=== PATIENT | female | born 1995 | race Hispanic/Latino ===

== ENCOUNTER 2017-03-27 00:29 | Day surgery (SDC) | payer OTHER ==
[2017-03-27 01:08] VITALS: BP 118/60; TEMP 98.1; BMI 35.2
[2017-03-27] MEDS ORDERED: Acetaminophen 500 MG TAB PO PRN (01:40)
[2017-03-27 02:00] LABS: Bilirubin Negative (Negative); Blood, Urine Trace (Negative); Glucose, Urine (Dipstick) Negative (Negative); Ketone, Urine Negative (Negative); Nitrite Negative (Negative); Protein, Urine (Dipstick) Negative (Neg-Trace); Urobilinogen 0.2 mg/dL (0.2-1.0)
[2017-03-27 02:03] LABS: Bacteria/HPF None Seen HPF (None Seen); Hyaline Casts/LPF 4-6 HYALINE CAST LPF (0-3 Hyaline); Squamous Epithelial 0-3 HPF (0-3); WBC/HPF 0-3 HPF (0-3)
== END 2017-03-27 04:00 | disposition home or self-care (01) ==
LOC: L&D/OP 00:29
PROVIDERS: ATTEND Family Medicine
DX: O26.893 Other specified pregnancy related conditions, third trimester (principal); R30.0 Dysuria; R10.2 Pelvic and perineal pain; O99.013 Anemia complicating pregnancy, third trimester; D50.9 Iron deficiency anemia, unspecified; Z79.899 Other long term (current) drug therapy; Z3A.39 39 weeks gestation of pregnancy
CPT/HCPCS: 81003; 81015; 87480; 87510; 87660

== ENCOUNTER 2017-04-03 05:30 | Inpatient (IN) | payer OTHER ==
[2017-04-03] MEDS ORDERED: LR / Pitocin 40 units/1000 ml 1,000 ML IV PRN (06:05)
[2017-04-03] MEDS ORDERED: Lidocaine 1% (PF) 30 ML VIAL SC PRN (06:05)
[2017-04-03] MEDS ORDERED: Ondansetron HCl/PF 4 MG/2 ML Vial IVP PRN (06:05)
[2017-04-03] MEDS ORDERED: Promethazine HCl 25 MG/ML VIAL IM PRN (06:05)
[2017-04-03] MEDS ORDERED: Penicillin G Potassium 5 MILL.UNITS in Sodium Chloride 0.9% 100 ML IVPB SCH ×2 (06:30→09:15)
[2017-04-03] MEDS: Lactated Ringer's 1,000 ML IV SCH ×3 (06:45→17:35)
[2017-04-03 06:48] LABS: Hematocrit 35.1 % (36.0-47.0); Mean Platelet Volume 9.6 fL (7.4-10.4); Red Blood Cell (RBC) Count 4.08 mill/uL (4.00-5.20); White Blood Cell (WBC) Count 11.2 thou/uL (4.8-10.8)
[2017-04-03 07:02] VITALS: BMI 35.6
[2017-04-03] MEDS: LR 500 ML/Oxytocin 10 units 500 ML IV SCH (07:40)
[2017-04-03] MEDS: Penicillin G 2.5 MILL.units 2.5 MILL.UNITS in Premix Bag 1 BAG IVPB SCH ×4 (10:02→21:44)
--- NOTE | 2017-04-03 10:48 | PDOC.LDPN ---
Labor & Delivery Progress Note - Subjective Subjective: painful contractions - Objective Vital signs reviewed and normal: yes General: resting Uterine fundus: non tender Dilation: 5 Effacement: 75% Station: -3 FHT: category 1 (140/mod/+accel/no decel) [place] contractions every: 2-4 min - Assessment (1) Single in third trimester Code(s): Z34.93 - ENCNTR FOR SUPRVSN OF NORMAL PREG, UNSP, THIRD TRIMESTER Current Visit: Yes Status: Acute Plan: continue plan of care, pitocin for augmentation -: 21 yo at 40.6w by LMP/12.2w bedside sono here for IOL: 1. sIUP: Continue pitocin induction, making cervical change. 3T labs WNL. Anatomy sono WNL. 2. GBS positive: NKDA, s/p penicillin x1, continue q4 hours 3. Maternal history: mild anemia of 4. Glucose intolerance: 1 hour borderline, 3 hour WNL 5. Family history: Father of baby's sister has Down Syndrome, declined NIPT Continue current management. Will consider AROM/pitocin augmentation after 2nd dose PCN. <Lina Harvey - Last Filed: 04/03/17 10:47> Attending Addendum - Attending Addendum I personally reviewed and discussed the management with Dr. Harvey. I agree with the History, Examination, Assessment and Plan documented above with any addition or exceptions noted below. <Fredy Mathis - Last Filed: 04/03/17 11:06>
[2017-04-03] MEDS ORDERED: Lidocaine 2% PF 5 ML VIAL ONE (11:11)
[2017-04-03] MEDS ORDERED: Bupivacaine 0.25% HCL 30 ML VIAL ONE (11:11)
[2017-04-03] MEDS ORDERED: Fentanyl 4 mcg/Marc 0.1% Cadd 100 ML ONE (13:56)
[2017-04-03] MEDS ORDERED: Acetaminophen 325 MG TAB PO PRN (14:33)
[2017-04-03] MEDS ORDERED: Naloxone HCl 0.4 mg/ml Vial IVP PRN ×2 (14:33)
[2017-04-03] MEDS ORDERED: ePHEDrine/0.9% NaCl/PF SYRINGE 50 mg/10 ml SLOW IVP PRN (14:33)
[2017-04-03] MEDS ORDERED: Lactated Ringer's 500 ML IV PRN (14:33)
[2017-04-03] MEDS ORDERED: diphenhydrAMINE 50 MG/ML VIAL IVP PRN (14:33)
[2017-04-03] MEDS ORDERED: Eucerin (Mineral Oil/Petrolatum,White) 30 gm Jar TOP PRN (14:33)
[2017-04-03] MEDS ORDERED: Fentanyl 4mcg/Marcaine 0.1% Cassette 100 ML EPIDURAL SCH (14:45)
[2017-04-03] MEDS ORDERED: Communication Order-Pharmacy FS SCH (14:45)
--- NOTE | 2017-04-03 15:45 | PDOC.LDPN ---
Labor & Delivery Progress Note - Subjective Subjective: comfortable (receieved epidural) - Objective Vital signs reviewed and normal: yes General: NAD, resting Uterine fundus: non tender Dilation: 7.5 Effacement: 90% Station: -1 FHT: category 1 - Assessment (1) Single in third trimester Code(s): Z34.93 - ENCNTR FOR SUPRVSN OF NORMAL PREG, UNSP, THIRD TRIMESTER Status: Acute Comment: Pt doing well, was feeling significant pain and decided to get epidural. Nurse check prior to epidural was 7.5/95/-1, intact. She states she is comfortable now after epidural. Not really feeling her contractions. Noting bloody show with getting up before but no LOF. Continue pitocin. Plan to AROM if no SROM soon <Ladonna Navarro - Last Filed: 04/03/17 15:41> Attending Addendum - Attending Addendum I personally discussed the management with Dr. Navarro I agree with the History, Examination, Assessment and Plan documented above with any addition or exceptions noted below. Continue expectant management. AndreaMD <Ashli Pisano - Last Filed: 04/06/17 11:49>
--- NOTE | 2017-04-03 16:37 | PDOC.LDPN ---
Labor & Delivery Progress Note - Subjective Subjective: comfortable - Objective Vital signs reviewed and normal: yes General: resting Uterine fundus: non tender Dilation: 9.5 Effacement: 100% FHT: category 1 (150/min-mod/no accel/no decel) [place] contractions every: 2-5 AROM: meconium stained fluid Resuscitative measures: maternal position change, other (discontinued pitocin) - Assessment (1) Single in third trimester Code(s): Z34.93 - ENCNTR FOR SUPRVSN OF NORMAL PREG, UNSP, THIRD TRIMESTER Current Visit: Yes Status: Acute Plan: continue plan of care, labor augmentation, resuscitative measures -: 21 yo at 40.6w by LMP/12.2w bedside sono here for IOL: 1. sIUP: s/p AROM with moderate meconium. Borderline tachysystole so will D/C pitocin temporarily and position change. Much more comfortable after epidural. 2. GBS positive: NKDA, s/p penicillin x2, continue q4 hours 3. Maternal history: mild anemia of 4. Glucose intolerance: 1 hour borderline, 3 hour WNL 5. Family history: Father of baby's sister has Down Syndrome, declined NIPT Continue current management. Anticipate soon. <Lina Harvey - Last Filed: 04/03/17 16:34> Attending Addendum - Attending Addendum I reveiwed the labor course and discussed the management with Dr. Harvey on DOS 04/03/17. I agree with the History, Examination, Assessment and Plan documented above with any addition or exceptions noted below. [facility] <Fredy Mathis - Last Filed: 04/05/17 11:36>
[2017-04-03] MEDS ORDERED: Fentanyl 100 MCG/2 ML VIAL ONE (17:20)
[2017-04-03 19:38] LABS: CO2 Tension (PaCO2) 57.6 mmHg (44.0-56.0)
[2017-04-03] MEDS ORDERED: traMADol HCl 50 MG TAB PO PRN ×2 (19:48)
[2017-04-03] MEDS ORDERED: Bisacodyl 10 MG SUPP PR PRN (19:48)
[2017-04-03] MEDS ORDERED: Lanolin Ointment 7 GM TUBE TOP PRN (19:48)
[2017-04-03] MEDS ORDERED: Benzocaine/Menthol 20-0.5% 60 ML CAN TOP PRN (19:48)
[2017-04-03] MEDS ORDERED: Preparation H Ointment 28 GM TUBE PR PRN (19:48)
[2017-04-03] MEDS ORDERED: Milk Of Magnesia 30 ML UDCUP PO PRN (19:48)
[2017-04-03] MEDS ORDERED: Adacel (T-DAP) 0.5 ML VIAL IM ONE (21:00)
[2017-04-03] MEDS: LR / Pitocin 40 units/1000 ml 1,000 ML IV SCH ×2 (21:26→22:47)
[2017-04-03] MEDS: Docusate Calcium (SURFAK) 240 MG CAP PO SCH (22:32)
[2017-04-03] MEDS: Ibuprofen 800 MG TAB PO SCH (22:33)
[2017-04-04] MEDS: Penicillin G 2.5 MILL.units 2.5 MILL.UNITS in Premix Bag 1 BAG IVPB SCH (02:06)
[2017-04-04] MEDS: Lactated Ringer's 1,000 ML IV SCH ×3 (04:16→21:37)
[2017-04-04] MEDS: LR 500 ML/Oxytocin 10 units 500 ML IV SCH (04:17)
[2017-04-04 04:58] LABS: Hematocrit 30.9 % (36.0-47.0); Mean Platelet Volume 9.8 fL (7.4-10.4); Red Blood Cell (RBC) Count 3.56 mill/uL (4.00-5.20); White Blood Cell (WBC) Count 18.3 thou/uL (4.8-10.8)
[2017-04-04] MEDS: Ibuprofen 800 MG TAB PO SCH ×3 (06:05→21:36)
--- NOTE | 2017-04-04 06:26 | PDOC.PP ---
Post Progress Note Post Day #: 1 Subjective: Feeling well this morning. Pain is well controlled with ibuprofen and is voiding and ambulating. She would like assistance from real estate listing consultant this morning if possible. PO intake tolerated: no (no meals yet) Flatus: yes Ambulation: yes Vital Signs (12 hours) Temp Pulse Resp BP Pulse Ox 04/04/17 06:08 98.3 F 77 18 118/58 L 04/04/17 04:08 97.8 F 63 18 97/54 L 04/04/17 00:00 97.8 F 66 18 111/54 L 04/03/17 21:30 98.3 F 74 18 116/59 L 97 Weight Weight 91.172 kg - Physical Examination General: NAD Cardiovascular: no m/r/g, RRR Respiratory: clear to auscultation bilaterally Abdominal: + bowel sounds, lochia (appropriate), no distention, appropriately TTP Fundus firm & at: umbilicus Extremities: negative homans (B) Neurological: no gross focal deficits Psychiatric: A&Ox3, normal affect Result Diagrams: 04/04/17 04:34 Additional Labs: Post Labs Blood Type O POSITIVE 04/03/17 06:41 Hep Bs Antigen Non-Reactive S/CO (NonReactive) 04/03/17 06:41 (1) Single in third trimester Code(s): Z34.93 - ENCNTR FOR SUPRVSN OF NORMAL PREG, UNSP, THIRD TRIMESTER Status: Acute - Assessment/Plan 21 yo G1 now P1 delivered at 1903 via over 1st degree midline and L sidewall laceration, s/p repair 1. H/H stable 2. Meeting all milestones 3. 4. Pain well-controlled Likely discharge tomorrow on PPD #2 <Lina Harvey - Last Filed: 04/04/17 08:27> Vital Signs (12 hours) Temp Pulse Resp BP 04/05/17 08:04 98.6 F 67 16 108/57 L Weight Weight 91.172 kg Result Diagrams: 04/04/17 04:34 Additional Labs: Post Labs Blood Type O POSITIVE 04/03/17 06:41 Hep Bs Antigen Non-Reactive S/CO (NonReactive) 04/03/17 06:41 <Fredy Mathis - Last Filed: 04/05/17 11:40> Attending Addendum - Attending Addendum I personally evaluated the patient and discussed the management with Dr. Hravey on DOS 04/04/17. I agree with the History, Examination, Assessment and Plan documented above with any addition or exceptions noted below. She is stable on PPD#1. Plan discharge in AM if stable and doing well. [facility] <Fredy Mathis - Last Filed: 04/05/17 11:40>
[2017-04-04] MEDS: Prenatal Vitamin 1 TAB PO SCH (09:23)
[2017-04-04] MEDS: Docusate Calcium (SURFAK) 240 MG CAP PO SCH ×2 (09:24→21:35)
[2017-04-04] MEDS: Ferrous Sulfate 325 MG TAB PO SCH ×2 (09:24→13:48)
--- NOTE | 2017-04-04 09:24 | DN-2 ---
DELIVERING PHYSICIANS: Lina Harvey M.D. and Sagrario Lange M.D. MEDICAL STUDENT: Kaylie Salcido, MS-IV ATTENDING: Fredy Mathis M.D. PROCEDURE: Spontaneous vaginal delivery. ANESTHESIA: Epidural. ESTIMATED BLOOD LOSS: 300 mL. PREOPERATIVE DIAGNOSES: 1. Term intrauterine . 2. GBS positive, status post > 2 doses PCN 3. History of anemia in POSTOPERATIVE DIAGNOSES: 1. Term intrauterine , delivered. 2. GBS positive, status post > 2 doses PCN 3. History of anemia in INDICATIONS: A 21-year-old female , who presented for post-dates induction at 40 weeks and 6 days. DELIVERY NOTE: This is a 21-year-old female G1, P0 at 40.6 weeks, who delivered a viable female infant at 1903 hours. Following an uneventful antepartum course, a vigorous female infant was delivered over a midline-first degree laceration in the occipitoanterior position. Anterior shoulder and the remainder of the body delivered. Nuchal cord x3 and L arm cord x2 was noted and reduced easily. The head was held down and mouth and nares were bulb suctioned. Cord clamped and cut and cord blood collected. Placenta delivered intact with 3-vessel cord noted. Fundal massage was performed and the fundus was firm. Cervix and vagina were inspected and a midline first-degree laceration and a left vaginal sidewall laceration, which was also first-degree, were both noted to be bleeding and repaired with 3-0 Vicryl suture in the usual fashion with good approximation and hemostasis. Infant went to nursery in good condition for routine care. Apgars were 8 and 9 at 1 and 5 minutes, respectively. The patient tolerated delivery well and went to after routine recovery and care. Dr. Fredy Mathis was present for and supervised the delivery and laceration repair. [facility]
[2017-04-05] MEDS: Ibuprofen 800 MG TAB PO SCH (06:02)
--- NOTE | 2017-04-05 06:14 | PDOC.PP ---
Post Progress Note Post Day #: 2 Subjective: Feeling well. Tolerating PO, ambulating and reports lochia has slowed down significantly and is just spotting now. She felt b2b sales consultant was very helpful and feels more confident . No further concerns and feels ready to go home today. PO intake tolerated: yes Flatus: no (+ bowel sounds) Ambulation: yes Vital Signs (12 hours) Temp Pulse Resp BP 04/04/17 19:40 98.5 F 73 18 111/55 L Weight Weight 91.172 kg - Physical Examination General: NAD Cardiovascular: no m/r/g, RRR Respiratory: clear to auscultation bilaterally, non-labored breathing Abdominal: + bowel sounds, lochia, no distention, appropriately TTP Fundus firm & at: umbilicus Extremities: negative homans (B) Skin: no rash Perineum: lochia scant Neurological: no gross focal deficits Psychiatric: A&Ox3, normal affect Result Diagrams: 04/04/17 04:34 Additional Labs: Post Labs Blood Type O POSITIVE 04/03/17 06:41 Hep Bs Antigen Non-Reactive S/CO (NonReactive) 04/03/17 06:41 (1) Single in third trimester Code(s): Z34.93 - ENCNTR FOR SUPRVSN OF NORMAL PREG, UNSP, THIRD TRIMESTER Status: Acute - Assessment/Plan 21 yo G1 now P1 delivered at 1903 via over 1st degree midline and L sidewall laceration, s/p repair 1. H/H stable 2. Meeting all milestones 3. , greatly appreciate Elizabeth's assistance 4. Pain well-controlled Likely discharge later today <Lina Harvey - Last Filed: 04/05/17 07:02> Vital Signs (12 hours) Temp Pulse Resp BP 04/05/17 08:04 98.6 F 67 16 108/57 L Weight Weight 91.172 kg Result Diagrams: 04/04/17 04:34 Additional Labs: Post Labs Blood Type O POSITIVE 04/03/17 06:41 Hep Bs Antigen Non-Reactive S/CO (NonReactive) 04/03/17 06:41 <Fredy Mathis - Last Filed: 04/05/17 12:22> Attending Addendum - Attending Addendum I personally evaluated the patient and discussed the management with Dr. Harvey. I agree with the History, Examination, Assessment and Plan documented above with any addition or exceptions noted below. Afebrile, VSS & Normal. Exam as above. A: PPD#2 Stable for Discharge. P: Discharge home. F/U with Dr. Harvey in [facility]. <Fredy Mathis - Last Filed: 04/05/17 12:22>
[2017-04-05 08:42] VITALS: BP 108/57; TEMP 98.6
[2017-04-05] MEDS: Prenatal Vitamin 1 TAB PO SCH (08:51)
[2017-04-05] MEDS: Lactated Ringer's 1,000 ML IV SCH (08:51)
[2017-04-05] MEDS: LR 500 ML/Oxytocin 10 units 500 ML IV SCH (08:51)
[2017-04-05] MEDS: Docusate Calcium (SURFAK) 240 MG CAP PO SCH (08:51)
== END 2017-04-05 11:51 | disposition home or self-care (01) | DRG 775 ==
LOC: L&D 05:55 → 3SW 21:32
PROVIDERS: ADMIT Family Medicine; ATTEND Family Medicine
PROC: 3E0P3VZ Introduction of Hormone into Female Reproductive, Percutaneous Approach (ICD-10-PCS; principal; 2017-04-03)
PROC: 10E0XZZ Delivery of Products of Conception, External Approach (ICD-10-PCS; 2017-04-04)
PROC: 0HQ9XZZ Repair Perineum Skin, External Approach (ICD-10-PCS; 2017-04-04)
DX: O48.0 Post-term pregnancy (principal); O99.824 Streptococcus B carrier state complicating childbirth; Z3A.40 40 weeks gestation of pregnancy; Z37.0 Single live birth; O70.0 First degree perineal laceration during delivery; O69.81X0 Labor and delivery complicated by cord around neck, without compression, not applicable or unspecified; O77.0 Labor and delivery complicated by meconium in amniotic fluid
CPT/HCPCS: 36415; 76815; 82805; 85027; 86780; 87340; J2001; J2540; J3010; J7050; J7120; S0020

== ENCOUNTER 2020-10-01 15:30 | Outpatient (CLI) | payer OTHER | END 2020-10-01 15:31 | disposition home or self-care (01) | LOC: BICULT 15:30 | PROVIDERS: ATTEND Family Medicine | DX: Z34.82 Encounter for supervision of other normal pregnancy, second trimester (principal); Z3A.21 21 weeks gestation of pregnancy | CPT/HCPCS: 76805 ==